=== PATIENT | female | born 1980 | race Caucasian/White ===

== ENCOUNTER 2016-10-23 23:20 | Inpatient (IN) | payer OTHER ==
[~2016-10-23] VITALS: Ht 165.1 cm; Wt 77.6 kg
[2016-10-23] MEDS ORDERED: PREN1TAB80 PO (23:38)
[2016-10-24] VITALS (14 sets, daily range): BP systolic 100–147; BP diastolic 66–90
[2016-10-24] MEDS ORDERED: CITRIC ACID/SODIUM CITRATE 30 ML SOLUTION UDCUP PO PRN
[2016-10-24] MEDS ORDERED: RINGERS SOLUTION,LACTATED 1,000 ML IV PRN
[2016-10-24] MEDS ORDERED: METOCLOPRAMIDE HCL 5 MG/ML 2 ML VIAL IVP PRN
[2016-10-24] MEDS ORDERED: GUM MASTIC/STORAX/MSAL/ALCOHOL LIQUID 0.67 ML VIAL TP ONE (00:16)
[2016-10-24 00:35] LABS: BASOPHILS % (AUTO) 0.2 % (0.0-2.0); EOSINOPHILS % (AUTO) 0.1 % (1.0-6.0); HEMATOCRIT 29.8 % (36-46); HEMOGLOBIN 9.3 g/dL (12.0-16.0); LYMPHOCYTES # (AUTO) 0.6 K/uL (1.0-4.8); LYMPHOCYTES % (AUTO) 20.9 % (22.0-44.0); MEAN CORPUSCULAR HEMOGLOBIN 26.4 pg (26.0-34.0); MEAN CORPUSCULAR HGB CONC 31.4 G/dL (31.0-37.0); MEAN CORPUSCULAR VOLUME 84 fL (80-100); MONOCYTES % (AUTO) 0.2 % (2.0-9.0); NEUTROPHILS # (AUTO) 2.2 K/uL (1.8-7.7); NEUTROPHILS % (AUTO) 78.6 % (40.0-70.0); RED BLOOD CELL COUNT(AUTO) 3.54 MIL/uL (4.00-5.20); RED CELL DISTRIBUTION WIDTH 14.4 % (11.5-14.5); WHITE BLOOD COUNT (AUTO) 3.3 K/uL (4.5-11.0)
[2016-10-24] MEDS ORDERED: ACETAMINOPHEN 1000 MG/ISO-OSM 100 ML IV ONE (01:00)
[2016-10-24] MEDS ORDERED: OXYTOCIN 20 UNITS in RINGERS SOLUTION,LACTATED 1,000 ML IV SCH (01:16)
[2016-10-24 01:27] LABS: CALCIUM, TOTAL 6.9 mg/dL (8.8-10.5); CREATININE 1.09 mg/dL (0.60-1.30); POTASSIUM 3.4 mmol/L (3.5-5.1)
[2016-10-24 01:29] LABS: PROTHROMBIN TIME 10.3 SEC (9.4-11.6)
[2016-10-24] MEDS ORDERED: LANOLIN 7 GM OINTMENT TP PRN (01:30)
[2016-10-24] MEDS ORDERED: MEASLES/MUMPS/RUBELLA VACCINE, LIVE 0.5 ML/VIAL SQ ONE (01:30)
[2016-10-24] MEDS ORDERED: MAGNESIUM HYDROXIDE SUSPENSION 30 ML UDCUP PO PRN (01:30)
[2016-10-24 01:33] LABS: ALBUMIN 1.5 g/dL (3.4-5.0); BILIRUBIN,TOTAL 0.5 mg/dL (0.1-1.0); TOTAL PROTEIN, SERUM 4.9 g/dL (6.4-8.2)
[2016-10-24] MEDS: RINGERS SOLUTION,LACTATED 1,000 ML IV SCH ×6 (03:00→17:04)
[2016-10-24] MEDS ORDERED: PROPOFOL 1000 MG/ISO-OSM 100 ML IV PRN (03:30)
[2016-10-24 04:15] LABS: ABG BASE EXCESS -3.9 mmol/L (-2.0-3.0); ABG HCO3 21.7 mmol/L (22.0-26.0); ABG OXYHEMOGLOBIN 98.9 % (94.0-100.0); ABG PCO2 35 mmHg (35-45); ABG PH 7.399 (7.350-7.450); TEMPERATURE, FAHRENHEIT, BG 98.6 FAHREN (96.0-98.6)
[2016-10-24 04:16] LABS: ALLEN TEST, BLOOD GAS Positive
[2016-10-24] MEDS: ACETAMINOPHEN 1000 MG/ISO-OSM 100 ML IV SCH ×3 (06:26→18:30)
[2016-10-24] MEDS ORDERED: SODIUM CHLORIDE 0.9% 250 ML IV ONE (06:28)
[2016-10-24 07:13] LABS: EOSINOPHILS # (AUTO) 0.01 K/uL (0.00-0.70); EOSINOPHILS % (AUTO) 0.04 % (1.0-6.0); HEMATOCRIT 26.2 % (36-46); HEMOGLOBIN 8.6 g/dL (12.0-16.0); LYMPHOCYTES # (AUTO) 0.1 K/uL (1.0-4.8); LYMPHOCYTES % (AUTO) 0.9 % (22.0-44.0); MEAN CORPUSCULAR HEMOGLOBIN 27.9 pg (26.0-34.0); MEAN CORPUSCULAR HGB CONC 32.7 G/dL (31.0-37.0); MEAN CORPUSCULAR VOLUME 85 fL (80-100); MONOCYTES # (AUTO) 0.1 K/uL (0.1-1.0); MONOCYTES % (AUTO) 0.7 % (2.0-9.0); NEUTROPHILS # (AUTO) 15.7 K/uL (1.8-7.7); RED BLOOD CELL COUNT(AUTO) 3.08 MIL/uL (4.00-5.20); RED CELL DISTRIBUTION WIDTH 14.3 % (11.5-14.5)
[2016-10-24 07:16] LABS: NEUTROPHILS % (AUTO) 98.3 % (40.0-70.0)
[2016-10-24 07:43] LABS: MAGNESIUM 1.2 mg/dL (1.80-2.40); URIC ACID 5.3 mg/dL (2.6-7.2)
[2016-10-24] MEDS ORDERED: CeFAZolin 2 GM/DEXTROSE 50 ML IV ONE (08:20)
[2016-10-24] MEDS ORDERED: LORazepam 2 MG/ML VIAL IM PRN (09:15)
[2016-10-24] MEDS ORDERED: MAGNESIUM SULFATE 2 GM in DEXTROSE 5%-WATER 50 ML IV PRN (09:15)
[2016-10-24 09:54] LABS: ABG A-A DIFF O2 57.8 mmHg (10-20.0); ABG BASE EXCESS -1.3 mmol/L (-2.0-3.0); ABG HCO3 23.7 mmol/L (22.0-26.0); ABG OXYHEMOGLOBIN 96.7 % (94.0-100.0); ABG PCO2 33 mmHg (35-45); ABG PH 7.456 (7.350-7.450); TEMPERATURE, FAHRENHEIT, BG 99.4 FAHREN (96.0-98.6)
[2016-10-24 09:55] LABS: ALLEN TEST, BLOOD GAS Positive
[2016-10-24] MEDS: MORPHINE SULFATE 2 MG/ML SYRINGE IVP PRN ×5 (11:33→22:48)
[2016-10-24] MEDS ORDERED: PHENYLEPHRINE HCL 10 MG/ML VIAL IVP ONE (12:00)
[2016-10-24] MEDS ORDERED: MIDAZOLAM HCL 2 MG/2 ML VIAL IVP ONE (12:00)
[2016-10-24] MEDS ORDERED: SUCCINYLCHOLINE CHLORIDE 20 MG/ML 10 ML VIAL IVP ONE (12:00)
[2016-10-24] MEDS ORDERED: PROPOFOL 1% 20 ML VIAL IVP ONE (12:00)
[2016-10-24] MEDS ORDERED: FentaNYL CITRATE-PF 100 MCG/2 ML VIAL IVP ONE (12:00)
[2016-10-24] MEDS ORDERED: KETAMINE HCL 50 MG/ML 10 ML VIAL IVP ONE (12:00)
[2016-10-24] MEDS ORDERED: ROCURONIUM BROMIDE 10 MG/ML 5 ML VIAL IVP ONE (12:00)
[2016-10-24] MEDS ORDERED: OXYTOCIN 10 UNITS/ML VIAL IM ONE (12:00)
[2016-10-24] MEDS ORDERED: 0.9% SODIUM CHLORIDE 10 ML VIAL IVP ONE (12:00)
[2016-10-24] MEDS: LORazepam 2 MG/ML VIAL IVP PRN ×2 (12:57→22:48)
[2016-10-24 15:39] LABS: RAPID PLASMA REAGIN NONREACTIVE (NONREACTIVE); RUBELLA SCREEN (IGG) IMMUNE (IMMUNE)
[2016-10-25] VITALS: BP 119/72
[2016-10-25] MEDS: ACETAMINOPHEN 1000 MG/ISO-OSM 100 ML IV SCH (00:43)
[2016-10-25] MEDS ORDERED: ACETAMINOPHEN/CODEINE 300-30 MG TABLET PO PRN ×2 (01:30)
[2016-10-25] MEDS ORDERED: IBUPROFEN 800 MG TABLET PO PRN (01:30)
[2016-10-25 04:26] VITALS: BP 127/74
[2016-10-25] MEDS: MORPHINE SULFATE 2 MG/ML SYRINGE IVP PRN ×4 (04:26→12:42)
[2016-10-25 06:15] LABS: HEMATOCRIT 22.5 % (36-46); HEMOGLOBIN 7.1 g/dL (12.0-16.0); MEAN CORPUSCULAR HEMOGLOBIN 27.3 pg (26.0-34.0); MEAN CORPUSCULAR HGB CONC 31.7 G/dL (31.0-37.0); MEAN CORPUSCULAR VOLUME 86 fL (80-100); PLATELET COUNT (AUTO) 117 K/uL (150-450); RED BLOOD CELL COUNT(AUTO) 2.62 MIL/uL (4.00-5.20); RED CELL DISTRIBUTION WIDTH 15.3 % (11.5-14.5)
[2016-10-25 06:36] LABS: WHITE BLOOD COUNT (AUTO) 34.6 K/uL (4.5-11.0)
[2016-10-25] MEDS ORDERED: *CLINICAL-RX DOSING [ENTER DRUG IN COMMENTS] CLINICAL ONE ×4 (07:00)
[2016-10-25] MEDS ORDERED: *CLINICAL-GENTAMICIN DOSING CLINICAL ONE ×2 (07:00)
[2016-10-25 07:37] LABS: ANION GAP 9 mmol/L (8-16); CALCIUM, TOTAL 7.4 mg/dL (8.8-10.5); CARBON DIOXIDE 24 mmol/L (22-29); CHLORIDE 108 mmol/L (98-107); GLOMERULAR FILTR. RATE CALC > 60 mL/min (>60); SODIUM SERUM 141 mmol/L (136-145); UREA NITROGEN, BLOOD 9 mg/dL (7-18)
[2016-10-25 07:47] LABS: TOTAL CELLS COUNTED 100
[2016-10-25 07:49] LABS: BAND NEUTROPHILS % (MANUAL) 28 % (1-5); LYMPHOCYTES % (MANUAL) 2 % (22-44)
[2016-10-25 07:50] VITALS: BP 140/82
[2016-10-25 08:00] VITALS: BP 140/82
[2016-10-25] MEDS: LORazepam 2 MG/ML VIAL IVP PRN (08:14)
[2016-10-25] MEDS ORDERED: SODIUM CHLORIDE 0.9% 250 ML IV ONE (09:18)
[2016-10-25] MEDS: GENTAMICIN 80 MG/NACL ISO-OSM 50 ML IV SCH ×2 (09:26→17:40)
[2016-10-25] MEDS: AMPICILLIN SODIUM 500 MG in SODIUM CHLORIDE 0.9% 50 ML IV SCH ×3 (10:17→21:29)
[2016-10-25 10:18] VITALS: BP 143/82
[2016-10-25 10:25] VITALS: BP 143/82
[2016-10-25] MEDS ORDERED: ACETAMINOPHEN 325 MG TABLET PO PRN (10:30)
[2016-10-25] MEDS: CLINDAMYCIN 300 MG/D5% WATER 50 ML IV SCH ×3 (11:41→22:30)
[2016-10-25] MEDS ORDERED: OxyCODONE HCL/ACETAMINOPHEN 5-325 MG TABLET PO PRN (15:15)
[2016-10-25] MEDS: OxyCODONE HCL/ACETAMINOPHEN 5-325 MG TABLET PO PRN ×2 (16:10→20:13)
[2016-10-25 20:42] LABS: APPEARANCE,URINE CLOUDY (CLEAR); GLUCOSE, URINE (UA) NEGATIVE (NEGATIVE); KETONES,URINE NEGATIVE (NEGATIVE); LEUKOCYTE ESTERASE ,URINE NEGATIVE (NEGATIVE); OCCULT BLOOD,URINE MODERATE (NEGATIVE); PROTEIN,URINE NEGATIVE (NEGATIVE)
[2016-10-25 20:50] LABS: ADD UA MICROSCOPIC YES
[2016-10-25 20:51] LABS: SQUAMOUS EPITHELIAL CELL,UR Rare /LPF (None Seen)
[2016-10-26] MEDS: GENTAMICIN 80 MG/NACL ISO-OSM 50 ML IV SCH (01:00)
[2016-10-26] MEDS: OxyCODONE HCL/ACETAMINOPHEN 5-325 MG TABLET PO PRN ×3 (01:11→12:04)
[2016-10-26] MEDS: AMPICILLIN SODIUM 500 MG in SODIUM CHLORIDE 0.9% 50 ML IV SCH (04:07)
[2016-10-26] MEDS: CLINDAMYCIN 300 MG/D5% WATER 50 ML IV SCH (05:13)
[2016-10-26 06:23] LABS: HEPATITIS C AB SCREEN <0.1 s/co ratio (0.0-0.9)
[2016-10-26 06:26] LABS: EOSINOPHILS % (AUTO) 0.6 % (1.0-6.0); HEMATOCRIT 22.7 % (36-46); LYMPHOCYTES # (AUTO) 2.5 K/uL (1.0-4.8); MEAN CORPUSCULAR HEMOGLOBIN 26.5 pg (26.0-34.0); MEAN CORPUSCULAR HGB CONC 30.9 G/dL (31.0-37.0); MEAN CORPUSCULAR VOLUME 86 fL (80-100); MONOCYTES # (AUTO) 0.8 K/uL (0.1-1.0); MONOCYTES % (AUTO) 2.9 % (2.0-9.0); NEUTROPHILS # (AUTO) 24.4 K/uL (1.8-7.7); RED BLOOD CELL COUNT(AUTO) 2.65 MIL/uL (4.00-5.20); RED CELL DISTRIBUTION WIDTH 14.8 % (11.5-14.5); WHITE BLOOD COUNT (AUTO) 27.9 K/uL (4.5-11.0)
[2016-10-26 06:32] LABS: ANION GAP 8 mmol/L (8-16); CALCIUM, TOTAL 7.6 mg/dL (8.8-10.5); CARBON DIOXIDE 24 mmol/L (22-29); CHLORIDE 109 mmol/L (98-107); CREATININE 0.66 mg/dL (0.60-1.30); GLOMERULAR FILTR. RATE CALC > 60 mL/min (>60); POTASSIUM 3.8 mmol/L (3.5-5.1); SODIUM SERUM 141 mmol/L (136-145); UREA NITROGEN, BLOOD 13 mg/dL (7-18)
[2016-10-26 06:51] LABS: NEUTROPHILS % (AUTO) 87.5 % (40.0-70.0)
[2016-10-26] MEDS ORDERED: GENTAMICIN 100 MG/NACL ISO-OSM 50 ML IV SCH (09:00)
[2016-10-26] MEDS ORDERED: CLINDAMYCIN 600 MG/D5% WATER 50 ML IV SCH (10:00)
[2016-10-26] MEDS ORDERED: AMPICILLIN SODIUM 2 GM/NS 100 ML IV SCH (11:00)
[2016-10-26] MEDS ORDERED: IBUPROFEN 600 MG TABLET PO SCH (12:00)
[2016-10-26] MEDS ORDERED: METHYLDOPA 250 MG TABLET PO SCH (13:00)
[2016-10-26] MEDS ORDERED: SOD FERRIC GLUC COMPLX/SUCROSE 125 MG in SODIUM CHLORIDE 0.9% 100 ML IV SCH (13:00)
[2016-11-02 07:33] LABS: CODEINE URINE Negative (Cutoff=200); U MORPHINE CONFIRM GC/MS 1020 ng/mL (Cutoff=200)
== END 2016-10-26 16:15 | disposition left against medical advice (07) | DRG 540 ==
LOC: 4S 23:20 → OBSVTOIN 23:20 → ICU 10-24 02:11 → 4S 10-24 02:30 → ICU 10-24 03:08 → 4S 10-25 11:37
PROVIDERS: ADMIT Obstetrics & Gynecology; ATTEND Obstetrics & Gynecology
PROC: 5A1935Z Respiratory Ventilation, Less than 24 Consecutive Hours (ICD-10-PCS; principal; 2016-10-23)
PROC: 0BH17EZ Insertion of Endotracheal Airway into Trachea, Via Natural or Artificial Opening (ICD-10-PCS; 2016-10-23)
PROC: 10D00Z1 Extraction of Products of Conception, Low, Open Approach (ICD-10-PCS; 2016-10-23)
DX: O76 Abnormality in fetal heart rate and rhythm complicating labor and delivery (principal); J96.90 Respiratory failure, unspecified, unspecified whether with hypoxia or hypercapnia; O99.324 Drug use complicating childbirth; E83.42 Hypomagnesemia; D64.9 Anemia, unspecified; F19.10 Other psychoactive substance abuse, uncomplicated; O34.211 Maternal care for low transverse scar from previous cesarean delivery; F15.10 Other stimulant abuse, uncomplicated; F11.10 Opioid abuse, uncomplicated; O99.02 Anemia complicating childbirth; O99.354 Diseases of the nervous system complicating childbirth; R56.9 Unspecified convulsions; O99.344 Other mental disorders complicating childbirth; F41.9 Anxiety disorder, unspecified; O99.52 Diseases of the respiratory system complicating childbirth; O99.284 Endocrine, nutritional and metabolic diseases complicating childbirth; Z59.0 Homelessness; Z3A.32 32 weeks gestation of pregnancy; Z37.0 Single live birth; Z78.1 Physical restraint status
CPT/HCPCS: 70450; 80307; 80324; 80361; 82805; 83735; 84550; 86592; 86762; 86803; 86850; 86900; 86901; 86920; 87040; 87081; 87106; 87340; 93005; 94002; J0131; J0290; J0330; J0690; J1580; J2060; J2250; J2270; J2370; J2590; J2704; J2916; J3010; J3475; J3490; J7050; J7060; J7120

== ENCOUNTER 2019-07-21 14:43 | Emergency (ER) | payer SELFPAY ==
[~2019-07-21 14:43] MED LIST: PREN1TAB80 PO
== END 2019-07-21 15:51 | disposition left against medical advice (07) ==
LOC: EMS 14:46
DX: R10.9 Unspecified abdominal pain (principal); Z53.21 Procedure and treatment not carried out due to patient leaving prior to being seen by health care provider

== ENCOUNTER 2022-10-31 21:26 | Emergency (ER) | payer OTHER ==
[~2022-10-31] VITALS: Ht 165.1 cm; Wt 64.0 kg
[2022-10-31 21:28] VITALS: BP 134/83
[2022-10-31 23:02] LABS: APPEARANCE,URINE CLEAR (CLEAR); BILIRUBIN,URINE NEGATIVE (NEGATIVE); GLUCOSE, URINE (UA) NEGATIVE (NEGATIVE); KETONES,URINE NEGATIVE (NEGATIVE); LEUKOCYTE ESTERASE ,URINE NEGATIVE (NEGATIVE); NITRATE,URINE POSITIVE (NEGATIVE); OCCULT BLOOD,URINE TRACE (NEGATIVE); PH,URINE 5.5 (5.0-8.0); PROTEIN,URINE NEGATIVE (NEGATIVE); SPECIFIC GRAVITIY, URINE 1.012 (1.003-1.030); UROBILINOGEN,URINE <=1.0 mg/dL (<=1.0)
[2022-10-31 23:23] LABS: BACTERIA,URINE Many /HPF (None Seen); RBC,URINE None Seen /HPF (0-2)
[2022-10-31] MEDS ORDERED: SULF-261 PO (23:29)
[2022-10-31] MEDS ORDERED: CEPH-558 PO (23:29)
== END 2022-10-31 23:43 | disposition home or self-care (01) ==
LOC: EMS 21:27
DX: L02.411 Cutaneous abscess of right axilla (principal); N39.0 Urinary tract infection, site not specified; F17.210 Nicotine dependence, cigarettes, uncomplicated
CPT/HCPCS: 81001; 87086; 87186; 99283

== ENCOUNTER 2022-11-03 01:33 | Emergency (ER) | payer OTHER ==
[~2022-11-03] VITALS: Ht 165.1 cm; Wt 63.0 kg
[~2022-11-03 01:33] MED LIST changes: +CEPH-558 PO; +SULF-261 PO
[2022-11-03 01:44] VITALS: BP 111/72
== END 2022-11-03 04:15 | disposition home or self-care (01) ==
LOC: EMS 01:35
DX: L03.111 Cellulitis of right axilla (principal); F17.210 Nicotine dependence, cigarettes, uncomplicated
CPT/HCPCS: 99281; Z7502